=== PATIENT | female | born 1990 | race African-American/Black ===

== ENCOUNTER 2018-08-20 08:14 | Emergency (ER) | payer BC, OTHER, SELFPAY ==
[2018-08-20] MEDS ORDERED: KETOROLAC 30 MG/ML INJ ONE (08:50)
[2018-08-20 09:15] LABS: Urine Blood 3+ (NEG); Urine Glucose NEGATIVE (NEG); Urine Protein 3+ (NEG); Urine Specific Gravity >1.030 (1.005-1.030); Urine pH 5.5 (5.0-7.0)
[2018-08-20 09:21] LABS: Absolute Monocytes 0.7 K/uL (0.1-1.3); Absolute Neutrophil 5.3 K/uL (1.8-8.0); Basophils % 0.9 % (0-1.3); Eosinophils % 0.7 % (0-4.4); Hematocrit 39.2 % (36.0-45.0); Lymphocytes % 33.2 % (15.3-44.8); MPV 9.4 fL (7.6-11.3); Monocytes % 7.3 % (3.3-12.3); RBC Red Blood Cell Count 5.12 M/uL (3.86-4.86)
--- NOTE | 2018-08-20 09:30 | RAD REPORT ---
EXAM DESCRIPTION: CT - Stone Protocol - 08/20/2018 9:01 am CLINICAL HISTORY: Right flank pain, right lower quadrant pain, history of ovarian cyst COMPARISON: CT study November 2013 TECHNIQUE: Axial 5 mm thick images were obtained without oral or IV contrast. The lxtro-de-nrrj span s the entirety of the system including uppermost abdomen and lung bases. All CT scans are performed using dose optimization technique as appropriate and may include automated exposure control or mA/KV adjustment according to patient size. FINDINGS: No hydronephrosis is present and no obstructing ureteral calculi. No suspicious renal mass es. Isodense masses and pyelonephritis are not excluded on a stone protocol CT scan. No urinary bladd er suspicious finding. No significant adrenal finding. Uterus and ovaries show no suspicious findings for age. No ovarian cyst or cyst rupture identified. Imaged portions of the liver, spleen and pancreas show no suspicious findings on non-contrast imaging . Gallbladder is contracted. Gallstones can be occult on CT imaging. No biliary tree abnormality seen . No suspicious bowel findings. No findings for appendicitis. No hernia, mass or bulky lymphadenopathy noted. No free air, free fluid or inflammatory stranding. No significant bony abnormality. IMPRESSION: Noncontrast CT abdomen and pelvis imaging shows no significant or suspicious finding. Isodense masses and pyelonephritis are not excluded on stone protocol technique.
--- NOTE | 2018-08-20 12:21 | EDPHYS ---
Physician Documentation [facility] Name: Catrina Bojorquez Age: 28 yrs Sex: Female : 1990 Arrival Date: 08/20/2018 Time: 08:16 Bed 5 Private MD: ED Physician Gordo Ochoa HPI: 08/20 08:36 This 28 yrs old Black Female presents to ER via Ambulatory with complaints of Abdominal jr8 Pain. 08:36 The patient presents with abdominal pain right lower quadrant. Onset: The jr8 symptoms/episode began/occurred acutely, today. The symptoms do not radiate. Associated signs and symptoms: none. The symptoms are described as stabbing. Modifying factors: The symptoms are alleviated by nothing, the symptoms are aggravated by movement. Severity of pain: At its worst the pain was moderate in the emergency department the pain is unchanged. It is unknown whether or not the patient has had similar symptoms in the past. The patient has not recently seen a physician. History of ovarian cysts in past. Stated that pain is somewhat similar to last time she had this . 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 - Social history:: Smoking status: Patient/guardian denies using tobacco. - Ebola Screening: : Patient negative for fever greater than or equal to 101.5 degrees Fahrenheit, and additional compatible Ebola Virus Disease symptoms Patient denies exposure to infectious person Patient denies travel to an Ebola-affected area in the 21 days before illness onset No symptoms or risks identified at this time. ROS: 08:36 Eyes: Negative for injury, pain, redness, and discharge, ENT: Negative for injury, jr8 pain, and discharge, Neck: Negative for injury, pain, and swelling, Cardiovascular: Negative for chest pain, palpitations, and edema, Respiratory: Negative for shortness of breath, cough, wheezing, and pleuritic chest pain, Back: Negative for injury and pain, MS/Extremity: Negative for injury and deformity, Skin: Negative for injury, rash, and discoloration, Neuro: Negative for headache, weakness, numbness, tingling, and seizure. 08:36 Abdomen/GI: Positive for abdominal pain, Negative for nausea, vomiting, and diarrhea, abdominal cramps, abdominal distension, anorexia, dysphagia, hematemesis, black/tarry stool, rectal pain, rectal bleeding, bowel incontinence, flatulence. 08:37 Constitutional: Negative for fever, chills, and weight loss. jr8 Exam: 08:36 Eyes: Pupils equal round and reactive to light, extra-ocular motions intact. Lids and jr8 lashes normal. Conjunctiva and sclera are non-icteric and not injected. Cornea within normal limits. Periorbital areas with no swelling, redness, or edema. ENT: Nares patent. No nasal discharge, no septal abnormalities noted. Tympanic membranes are normal and external auditory canals are clear. Oropharynx with no redness, swelling, or masses, exudates, or evidence of obstruction, uvula midline. Mucous membranes moist. Neck: Trachea midline, no thyromegaly or masses palpated, and no cervical lymphadenopathy. Supple, full range of motion without nuchal rigidity, or vertebral point tenderness. No Meningismus. Cardiovascular: Regular rate and rhythm with a normal S1 and S2. No gallops, murmurs, or rubs. Normal PMI, no JVD. No pulse deficits. Respiratory: Lungs have equal breath sounds bilaterally, clear to auscultation and percussion. No rales, rhonchi or wheezes noted. No increased work of breathing, no retractions or nasal flaring. Back: No spinal tenderness. No costovertebral tenderness. Full range of motion. Skin: Warm, dry with normal turgor. Normal color with no rashes, no lesions, and no evidence of cellulitis. MS/ Extremity: Pulses equal, no cyanosis. Neurovascular intact. Full, normal range of motion. Neuro: Awake and alert, GCS 15, oriented to person, place, time, and situation. Cranial nerves II-XII grossly intact. Motor strength 5/5 in all extremities. Sensory grossly intact. Cerebellar exam normal. Normal gait. 08:36 Abdomen/GI: Inspection: obese Bowel sounds: active, all quadrants, Palpation: soft, in all quadrants, mild abdominal tenderness, in the anterior aspect of right lateral abdomen and right lower quadrant, mass, is not appreciated, rebound tenderness, is not appreciated, voluntary guarding, is not appreciated, involuntary guarding, is not appreciated, no appreciated organomegaly, Indicators: McBurney's point is not tender, Mars's sign is negative, Rovsing's sign is negative, Liver: tenderness, is not appreciated. Vital Signs: 08:31 BP 144 / 73; Pulse 116; Resp 18; Temp 97.6(O); Pulse Ox 100% on R/A; hj 09:26 BP 142 / 73; Pulse 90; Resp 18; Pulse Ox 100% on R/A; hj 10:21 BP 100 / 49; Pulse 85; Resp 18; Pulse Ox 100% on R/A; hj 11:30 BP 105 / 55; Pulse 71; Resp 18; Pulse Ox 100% on R/A; hj 12:20 BP 112 / 55; Pulse 82; Resp 18; Pulse Ox 100% on R/A; hj MDM: 08:19 Patient medically screened. [facility] 12:20 Data reviewed: vital signs, nurses notes, lab test result(s), radiologic studies, CT jr8 scan. Data interpreted: Pulse oximetry: on room air is 100 %. Interpretation: normal. Counseling: I had a detailed discussion with the patient and/or guardian regarding: the historical points, exam findings, and any diagnostic results supporting the discharge/admit diagnosis, lab results, radiology results, the need for outpatient follow up, a family practitioner, to return to the emergency department if symptoms worsen or persist or if there are any questions or concerns that arise at home. Response to treatment: the patient's symptoms have markedly improved after treatment. Special discussion: Based on the patient's Hx, exam, and Dx evaluation, there is no indication for emergent surgery or inpatient Tx. It is understood by the patient/guardian that if the Sx's persist or worsen they need to return immediately for re-evaluation. 08/20 08:32 Order name: Basic Metabolic Panel; Complete Time: 09:39 [facility] 08/20 08:32 Order name: CBC with Diff; Complete Time: 09:25 [facility] 08/20 08:32 Order name: Creatinine for Radiology; Complete Time: 09:38 [facility] 08/20 08:39 Order name: CT Stone Protocol [facility] 08/20 08:43 Order name: Urine Dipstick--Ancillary (enter results); Complete Time: 09:24 08/20 08:43 Order name: Urine --Ancillary (enter results); Complete Time: 09:24 08/20 08:32 Order name: IV Saline Lock; Complete Time: 09:16 [facility] 08/20 08:32 Order name: Labs collected and sent; Complete Time: 09:16 8 08/20 08:32 Order name: Urine Test (obtain specimen); Complete Time: 08:40 8 08/20 08:32 Order name: Urine Dipstick-Ancillary (obtain specimen); Complete Time: 08:40 [facility] Administered Medications: 09:13 Drug: TORadol - Ketorolac 15 mg Route: IVP; Site: right forearm; 09:16 Follow up: Response: No adverse reaction; Pain is decreased Disposition: 17:20 Co-signature as Attending Physician, Gordo Ochoa MD. rn Disposition: 08/20/18 12:21 Discharged to Home. Impression: Abdominal and pelvic pain. - Condition is Stable. - Discharge Instructions: Abdominal Pain, Adult. - Prescriptions for Tylenol- Codeine #3 300-30 mg Oral Tablet - take 2 tablets by ORAL route every 6 hours As needed; 12 tablet. Ibuprofen 800 mg Oral Tablet - take 1 tablet by ORAL route every 12 hours As needed take with food; 20 tablet. - Medication Reconciliation Form, Thank You Letter, Antibiotic Education, Prescription Opioid Use form. - Follow up: Private Physician; When: 2 - 3 days; Reason: Recheck today's complaints, Continuance of care, Re-evaluation by your physician. - Problem is new. - Symptoms have improved. Signatures: Dispatcher [employer] Maximo Frey RN NICOLE Gordo Ochoa MD MD rn Roszak, Josh, PA PA jr8 Vimal Allen RN RN Corrections: (The following items were deleted from the chart) 12:39 12:21 08/20/2018 12:21 Discharged to Home. Impression: Abdominal and pelvic pain. hj Condition is Stable. Forms are Medication Reconciliation Form, Thank You Letter, Antibiotic Education, Prescription Opioid Use. Follow up: Private Physician; When: 2 - 3 days; Reason: Recheck today's complaints, Continuance of care, Re-evaluation by your physician. Problem is new. Symptoms have improved. jr8
--- NOTE | 2018-08-20 12:21 | ER ---
Nurse's Notes [facility] Name: Catrina Bojorquez Age: 28 yrs Sex: Female : 1990 Arrival Date: 08/20/2018 Time: 08:16 Bed 5 Private MD: Diagnosis: Abdominal and pelvic pain Presentation: 08/20 08:20 Acuity: MRAÍA 3 sg 08:30 Presenting complaint: Patient states: RLQ pain that started this AM, reports having had sg this pain before and diagnosed with ovarian cyst, denies N/V/D/Fever at this time, denies Urinary symptoms, denies Vaginal bleeding/discharged. Transition of care: patient was not received from another setting of care. Onset of symptoms was August 20, 2018. 08:30 Method Of Arrival: Ambulatory 08:32 Risk Assessment: Do you want to hurt yourself or someone else? Patient reports no hj desire to harm self or others. Initial Sepsis Screen: Does the patient meet any 2 criteria? No. Patient's initial sepsis screen is negative. Does the patient have a suspected source of infection? No. Patient's initial sepsis screen is negative. Care prior to arrival: None. 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 - Social history:: Smoking status: Patient/guardian denies using tobacco. - Ebola Screening: : Patient negative for fever greater than or equal to 101.5 degrees Fahrenheit, and additional compatible Ebola Virus Disease symptoms Patient denies exposure to infectious person Patient denies travel to an Ebola-affected area in the 21 days before illness onset No symptoms or risks identified at this time. Screenin:32 Abuse screen: Denies threats or abuse. Denies injuries from another. Nutritional hj screening: No deficits noted. Tuberculosis screening: No symptoms or risk factors identified. Fall Risk None identified. Assessment: 08:33 General: Appears in no apparent distress. uncomfortable, Behavior is calm, cooperative, hj appropriate for age. Pain: Complains of pain in abdomen Pain does not radiate. Neuro: Level of Consciousness is awake, alert, obeys commands, Oriented to person, place, time, situation, Appropriate for age. Cardiovascular: Capillary refill < 3 seconds Patient's skin is warm and dry. Respiratory: Airway is patent Respiratory effort is even, unlabored, Respiratory pattern is regular, symmetrical. GI: Bowel sounds present X 4 quads. Abd is soft Abdomen is tender to palpation. : No signs and/or symptoms were reported regarding the genitourinary system. EENT: No signs and/or symptoms were reported regarding the EENT system. Derm: No signs and/or symptoms reported regarding the dermatologic system. Musculoskeletal: No signs and/or symptoms reported regarding the musculoskeletal system. 09:30 Reassessment: Patient and/or family updated on plan of care and expected duration. Pain hj level reassessed. Patient is alert, oriented x 3, equal unlabored respirations, skin warm/dry/pink. awaiting results and POC;. 10:21 Reassessment: Patient and/or family updated on plan of care and expected duration. Pain hj level reassessed. Patient is alert, oriented x 3, equal unlabored respirations, skin warm/dry/pink. awaiting CT official read;. 11:30 Reassessment: Patient and/or family updated on plan of care and expected duration. Pain hj level reassessed. Patient is alert, oriented x 3, equal unlabored respirations, skin warm/dry/pink. awaiting CT official read;. 12:19 Reassessment: Patient and/or family updated on plan of care and expected duration. Pain hj level reassessed. Patient is alert, oriented x 3, equal unlabored respirations, skin warm/dry/pink. awaiting CT official read; provider aware;. Vital Signs: 08:31 BP 144 / 73; Pulse 116; Resp 18; Temp 97.6(O); Pulse Ox 100% on R/A; hj 09:26 BP 142 / 73; Pulse 90; Resp 18; Pulse Ox 100% on R/A; hj 10:21 BP 100 / 49; Pulse 85; Resp 18; Pulse Ox 100% on R/A; hj 11:30 BP 105 / 55; Pulse 71; Resp 18; Pulse Ox 100% on R/A; hj 12:20 BP 112 / 55; Pulse 82; Resp 18; Pulse Ox 100% on R/A; hj ED Course: 08:16 Patient arrived in ED. as 08:19 Wolfgang Inman PA is PHCP. jr8 08:19 Gordo Ochoa MD is Attending Physician. jr8 08:20 Vimal Allen, NICOLE is Primary Nurse. hj 08:20 Triage completed. sg 08:32 Arm band placed on right wrist. hj 08:32 Patient has correct armband on for positive identification. Placed in gown. Bed in low hj position. Call light in reach. Side rails up X 1. 09:01 CT Stone Protocol In Process Unspecified. EDMS 09:13 Initial lab(s) drawn, by me, sent to lab. Inserted saline lock: 22 gauge in right hj forearm, using aseptic technique. Blood collected. 12:28 No provider procedures requiring assistance completed. IV discontinued, intact, hj bleeding controlled, No redness/swelling at site. Pressure dressing applied. Administered Medications: 09:13 Drug: TORadol - Ketorolac 15 mg Route: IVP; Site: right forearm; hj 09:16 Follow up: Response: No adverse reaction; Pain is decreased hj Outcome: 12:21 Discharge ordered by . jr8 12:28 Discharged to home ambulatory. hj 12:28 Condition: stable 12:28 Discharge instructions given to patient, Instructed on discharge instructions, follow up and referral plans. medication usage, Demonstrated understanding of instructions, follow-up care, medications, Prescriptions given X 2. 12:39 Patient left the ED. hj Signatures: Dispatcher [employer] EDMS Maximo Cespedes RN RN sg Martinez, Amelia as Wolfgang Inman PA PA jrVimal Torre RN RN
== END 2018-08-20 12:39 | disposition home or self-care (01) ==
LOC: ER 08:14
DX: R10.31 Right lower quadrant pain (principal); R10.2 Pelvic and perineal pain
CPT/HCPCS: 36415; 74176; 76377; 80048; 81003; 81025; 85025; 96374; 99284